=== PATIENT | female | born 1990 | race African-American/Black ===

== ENCOUNTER 2024-11-08 13:14 | Emergency (ER) | payer OTHER ==
[~2024-11-08] VITALS: Ht 162.6 cm; Wt 90.7 kg
[2024-11-08 14:51] VITALS: BP 135/83; PULSE 91; RESP 20; TEMP 97.8; O2SAT 100
[2024-11-08 15:53] LABS: Urine Bacteria None Seen /hpf (None Seen)
[2024-11-08] MEDS: HYDROcodone-ACET 5/325MG TAB PO ONE (15:53)
[2024-11-08 16:03] LABS: Urine Blood Negative /uL (Negative); Urine Budding Yeast OCCASIONAL /hpf (None Seen); Urine Clarity Clear (Clear); Urine Color Light-Yellow (Yellow); Urine Protein, UAD Negative (Negative); Urine Specific Gravity 1.015 (1.001-1.035); Urine Squamous Epithelial Cell FEW /hpf (<5); Urine Urobilinogen Normal (Negative); Urine WBC 1 /HPF (0-5); Urine pH 6.5 (5.0-9.0)
--- NOTE | 2024-11-08 16:37 | DVH ---
EXAM: US PELVIC Clinical History: r/o abscess Comparison: None Technique: Grayscale ultrasound of the vulvar soft tissues performed with color Doppler and spectral /pulsed waveform as indicated. Findings/Impression: 1.2 X 0.7 cm anechoic, nonvascular structure near the labia/vaginal canal. Findings may reflect a S kene's gland or bartholin gland cyst. No evidence of an abscess.
[2024-11-08 16:51] LABS: Basophils # (auto) 0 10 ^3/uL (0-0.2); Basophils % (auto) 0.6 % (0.0-2.0); Eosinophils # (auto) 0.3 10 ^3/uL (0-0.8); Eosinophils % (auto) 4.6 % (0.0-7.0); Lymphocytes # (auto) 1.7 10 ^3/uL (0.4-5.4); Mean Corpuscular Hemoglobin 29.8 pg (28.0-32.0); Mean Corpuscular Hgb Conc. 33.3 g/dL (32.0-36.0); Mean Corpuscular Volume 89.4 fL (80.0-100.0); Monocytes # (auto) 0.4 10 ^3/uL (0-1.3); Monocytes % (auto) 7.7 % (0.0-12.0); Neutrophils % (auto) 56.1 % (37.0-80.0); Nucleated Red Blood Cells % 0.2 %; Platelet Count (auto) 297 10^3/uL (140-450); Red Blood Cells 4.36 10^6/uL (4.0-5.20); Red Cell Distribution Width 12.5 % (11.8-14.3); White Blood Cell 5.4 10^3/uL (4.4-10.8)
[2024-11-08] MEDS ORDERED: HYDR-4902 PO (17:08)
--- NOTE | 2024-11-08 17:08 | ED.PDOC ---
MANAGER WASTEWATER HPI Comments 34 year old presents with cc of a painful abscess/cyst to pelvic area Recent I&D with OB 3 days ago Pt feels its regrowing Denies f/c/n/v/d Requesting another I&D. Does not want abx, refusing labs, refusing medications for pain Chief Complaint: Abscess Time Seen by MD: 14:11 Reviewed Notes: Nurses Notes, Medications, Allergies Allergies: Uncoded Allergies: BENOPHENOXIDE (Allergy, Unknown, 11/08/24) Home Meds Active Scripts Hydrocodone-Acetaminophen (Hydrocodone Bitartrate/AC 5-325 mg) 1 Tab Tab, 1 TAB PO Q8HP PRN for 2 Days, #6 TAB 0 Refills Prov:JULI OCHOA Nancy SPOT WELDER 11/08/24 Information Source: Patient All Other Systems: Reviewed and Negative (per hpi) Physical Exam General Appearance: No Apparent Distress, Normal HEENT: Normal ENT Inspection, Pharynx Normal, TMs Normal Neck: Full Range of Motion, Non-Tender, Normal, Normal Inspection Respiratory: Chest Non-Tender, Lungs Clear, No Accessory Muscle Use, No Respiratory Distress, Normal Breath Sounds Cardiovascular: No Murmur, No Gallop, Regular Rate/Rhythm Breast Exam: Deferred Gastrointestinal: No Organomegaly, Non Tender, No Pulsatile Mass, Normal Bowel Sounds, Soft Genitalia: Deferred Pelvic: Other (Francy in the room: no visible abscess or cyst noted. Normal on inspection) Rectal: Deferred Extremities: No calf tenderness, Normal capillary refill, Normal inspection, Normal range of motion, Non-tender, No pedal edema Musculoskeletal : Apperance: Normal Neurologic: Alert, No Motor Deficits, Normal Affect, Normal Mood, No Sensory Deficits Cerebellar Function: Normal Reflexes: Normal Skin: Dry, Normal Color, Warm Lymphatic: No Adenopathy Was a procedure done? Was a procedure done?: No Differential Diagnosis (QUALITY TECHNICIAN) Vaginal Bleeding: Other X-Ray, Labs, Meds, VS Vital Signs Date Time Temp Pulse Resp B/P (MAP) Pulse Ox O2 Delivery O2 Flow Rate FiO2 11/08/24 14:51 97.8 91 20 135/83 (100) 100 97.8 11/08/24 13:25 97.8 91 20 135/83 (100) 100 Lab Test 11/08/24 16:34 11/08/24 15:30 Range/Units White Blood Count 5.4 4.4-10.8 10^3/uL Red Blood Count 4.36 4.0-5.20 10^6/uL Hemoglobin 13.0 12.2-16.2 g/dL Hematocrit 39.0 36.0-46.0 % Mean Corpuscular Volume 89.4 80.0-100.0 fL Mean Corpuscular Hemoglobin 29.8 28.0-32.0 pg Mean Corpuscular Hemoglobin Concent 33.3 32.0-36.0 g/dL Red Cell Distribution Width 12.5 11.8-14.3 % Platelet Count 297 140-450 10^3/uL Mean Platelet Volume 7.6 6.9-10.8 fL Neutrophils (%) (Auto) 56.1 37.0-80.0 % Lymphocytes (%) (Auto) 31.0 10.0-50.0 % Monocytes (%) (Auto) 7.7 0.0-12.0 % Eosinophils (%) (Auto) 4.6 0.0-7.0 % Basophils (%) (Auto) 0.6 0.0-2.0 % Neutrophils # (Auto) 3.0 1.6-8.6 10 ^3/uL Lymphocytes # (Auto) 1.7 0.4-5.4 10 ^3/uL Monocytes # (Auto) 0.4 0-1.3 10 ^3/uL Eosinophils # (Auto) 0.3 0-0.8 10 ^3/uL Basophils # (Auto) 0 0-0.2 10 ^3/uL Nucleated Red Blood Cells 0.2 % Sodium Level 140 136-145 mmol/L Potassium Level 3.5 3.5-5.1 mmol/L Chloride Level 108 H 98-107 mmol/L Carbon Dioxide Level 28 20-31 mmol/L Anion Gap 4 L 5-15 Blood Urea Nitrogen 9 9-23 mg/dL Creatinine 0.89 0.550-1.02 mg/dL Glomerular Filtration Rate Calc 88 >90 mL/min BUN/Creatinine Ratio 10.1 10.0-20.0 Serum Glucose 112 H 74-106 mg/dL Calcium Level 9.1 8.7-10.4 mg/dL Total Bilirubin 0.3 0.2-1.0 mg/dL Aspartate Amino Transferase (AST) 12 L 13-40 U/L Alanine Aminotransferase (ALT) 12 7-40 U/L Alkaline Phosphatase 69 46-116 U/L Total Protein 6.9 5.7-8.2 g/dL Albumin 4.1 3.2-4.8 g/dL Urine Color Light-yellow Yellow Urine Clarity Clear Clear Urine pH 6.5 5.0-9.0 Urine Specific Warren 1.015 1.001-1.035 Urine Protein Negative Negative Urine Ketones Negative Negative Urine Blood Negative Negative /uL Urine Nitrite Negative Negative Urine Bilirubin Negative Negative Urine Urobilinogen Normal Negative mg/dL Urine Leukocyte Esterase 1+ Negative /uL Urine RBC <1 0 - 4 /hpf Urine Microscopic WBC 1 0-5 /HPF Urine Squamous Epithelial Cells Few <5 /hpf Urine Bacteria None seen None Seen /hpf Urine Yeast (Budding) Occasional None Seen /hpf Urine Glucose Normal Normal mg/dL Urine Test Negative Negative PATIENT: JANNET ZAMORAAACCT: [id number]: [id number] : 1990 LOC: ER ROOM / BED: / AGE / SEX: 34 / F ADM STATUS: REG ER SERVICE [id number] ORDERING PHYSICIAN: JULI OCHOA NP PROCEDURE(s): PELUS - PELVIC REASON: r/o abscess ORDER NUMBER(s): [id number], ACCESSION NUMBER(s): [id number] EXAM: US PELVIC Clinical History: r/o abscess Comparison: None Technique: Grayscale ultrasound of the vulvar soft tissues performed with color Doppler and spectral/pulsed waveform as indicated. Findings/Impression: 1.2 X 0.7 cm anechoic, nonvascular structure near the labia/vaginal canal. Findings may reflect a Polvadera's gland or bartholin gland cyst. No evidence of an abscess. ATED BY: TAMIKO ENGLAND DO DICTATED DATE/TIME: 11/08/241633 SIGNED BY: TAMIKO ENGLAND DO SIGNED DATE/TIME: 11/08/241633 CC: X-Ray, Labs, Meds, VS Comment 1.2 X 0.7 cm anechoic, nonvascular structure near the labia/vaginal canal. Findings may reflect a Polvadera's gland or bartholin gland cyst. No well defined abscess noted Will defer to OB. Has apt in 2 days. Return precautions discussed and pt agreed to plan Time of 1ST Reevaluation: 17:00 Reevaluation 1ST: Improved Patient Education/Counseling: Diagnosis, Treatment Family Education/Counseling: Diagnosis, Treatment Departure 1 Departure Time of Disposition: 17:07 Impression: Primary Impression: Bartholin cyst Disposition: HOME / SELF CARE / HOMELESS Condition: Stable e-Prescriptions Hydrocodone-Acetaminophen (Hydrocodone Bitartrate/AC 5-325 mg) 1 Tab Tab 1 TAB PO Q8HP PRN for 2 Days, #6 TAB 0 Refills Prov: JULI OCHOA SPOT WELDER 11/08/24 Critical Care Note Critical Care Time?: No Stability Stability form required: No Heart Score Heart Score: Heart Score Response (Comments) Value History N/A 0 EKG N/A 0 Age N/A 0 Risk Factors N/A 0 Troponin N/A 0 Total 0 JULI OCHOA NP Nov 08, 2024 17:08
[2024-11-08 17:23] LABS: Alanine Aminotransferase 12 U/L (7-40); Albumin 4.1 g/dL (3.2-4.8); Alkaline Phosphatase 69 U/L (46-116); Anion Gap 4 (5-15); Aspartate Aminotransferase 12 U/L (13-40); BUN/Creatinine Ratio 10.1 (10.0-20.0); Bilirubin, Total 0.3 mg/dL (0.2-1.0); Blood Urea Nitrogen 9 mg/dL (9-23); Calcium 9.1 mg/dL (8.7-10.4); Carbon Dioxide 28 mmol/L (20-31); Chloride 108 mmol/L (98-107); Glucose 112 mg/dL (74-106); Potassium 3.5 mmol/L (3.5-5.1); Sodium 140 mmol/L (136-145); Total Protein 6.9 g/dL (5.7-8.2)
== END 2024-11-08 17:12 | disposition home or self-care (01) ==
LOC: ER 13:14
DX: N75.0 Cyst of Bartholin's gland (principal); Z79.899 Other long term (current) drug therapy; Z32.02 Encounter for pregnancy test, result negative
CPT/HCPCS: 36415; 76856; 80053; 81001; 81025; 85025

== ENCOUNTER 2024-11-18 08:25 | Observation (INO) | payer OTHER ==
[~2024-11-18] VITALS: Ht 162.6 cm; Wt 89.9 kg
[~2024-11-18 08:25] MED LIST: HYDR-4902 PO
--- NOTE | 2024-11-18 08:43 | ED.PDOC ---
History of Present Illness HPI Comments 34 year old female presents to the ED with a chief complaint of pelvic pain. Patient states her OB is Dr. Estrella, was seen 11/15/24, was told to come to ED today (11/18/24). She has been experiencing vaginal cyst since June 2024. Patient refused any pelvic exam and states she wants Dr. Estrella called. Denies any PMHx as well as nausea, vomiting, diarrhea, fever, chills, abdominal pain. No other symptoms or modifying factors present at this time. Chief Complaint: Pelvic Pain Time Seen by MD: 08:30 Reviewed Notes: Medications, Allergies Allergies: Uncoded Allergies: BENOPHENOXIDE (Allergy, Unknown, 11/08/24) Home Meds Active Scripts Hydrocodone-Acetaminophen (Hydrocodone Bitartrate/AC 5-325 mg) 1 Tab Tab, 1 TAB PO Q8HP PRN for 2 Days, #6 TAB 0 Refills Prov:GABRIELAJULI METAL FABRICATOR 11/08/24 Information Source: Patient Mode of Arrival: Ambulatory Severity: Moderate Timing: Hours Duration: Since onset Prehospital treatment: None Past Medical History PAST MEDICAL HISTORY: Denies Surgical History: Denies all surgeries WEATHERIZATION CREW LEADER History: No Pertinent WEATHERIZATION CREW LEADER History Family History Family History: Reviewed,noncontributory to illness, No family hx of Cancer, No family hx of DM, No family hx of Heart zeinab, No family hx of HTN, No family hx ofKidney zeinab, No family hx of Liver zeinab, No family hx of Lung zeinab, No family hx of Stroke Social History Smoker: Non-Smoker Alcohol: Denies ETOH Use Drugs: Denies Drug Use Lives In: Home Constitutional: denies: chills, diaphoresis, fatigue, fever, malaise, sweats, weakness, others EENTM: denies: blurred vision, double vision, ear bleeding, ear discharge, ear drainage, ear pain, ear ringing, eye pain, eye redness, hearing loss, mouth pain, mouth swelling, nasal discharge, nose bleeding, nose congestion, nose pain, photophobia, tearing, throat pain, throat swelling, voice changes, others Respiratory: denies: cough, hemoptysis, orthopnea, SOB at rest, shortness of breath, SOB with excertion, stridor, wheezing, others Cardiovascular: denies: chest pain, dizzy spells, diaphoresis, Dyspnea on exertion, edema, irregular heart beat, left arm pain, lightheadedness, palpitations, PND, syncope, others Gastrointestinal: denies: abdomen distended, abdominal pain, blood streaked bowels, constipated, diarrhea, dysphagia, difficulty swallowing, hematemesis, melena, nausea, poor appetite, poor fluid intake, rectal bleeding, rectal pain, vomiting, others Genitourinary: reports: pain (pelvic ); denies: abnormal vagina bleeding, burning, dyspareunia, dysuria, flank pain, frequency, hematuria, incontinence, , vagina discharge, urgency, others Neurological: denies: dizziness, fainting, headache, left sided numbness, left sided weakness, numbness, paresthesia, pre-existing deficit, right sided n umbness, right sided weakness, seizure, speech problems, tingling, tremors, weakness, others Musculoskeletal: denies: back pain, gout, joint pain, joint swelling, muscle pain, muscle stiffness, neck pain, others Integumetry: denies: bruises, change in color, change in hair/nails, dryness, laceration, lesions, lumps, rash, wounds, others Allergic/Immunocompromised: denies: Difficulty Healing, Frequent Infections, Hives, Itching, others Hematologic/Lymphatic: denies: anemia, blood clots, easy bleeding, easy bruising, swollen glands, others Endocrine: denies: excessive hunger, excessive sweating, excessive thirst, excessive urination, flushing, intolerance to cold, intolerance to heat, unexplained weight gain, unexplained weight loss, others Psychiatric: denies: anxiety, bipolar disorder, depression, hopeless, panic disorder, schizophrenia, sleepless, suicidal, others All Other Systems: Reviewed and Negative Physical Exam Exam Comments pt declined exam. she states that she was told by Dr Bagley to come to the ER and have him called General Appearance: No Apparent Distress, Normal HEENT: Normal ENT Inspection, Pharynx Normal, TMs Normal Neck: Full Range of Motion, Non-Tender, Normal, Normal Inspection Respiratory: Chest Non-Tender, Lungs Clear, No Accessory Muscle Use, No Respiratory Distress, Normal Breath Sounds Cardiovascular: No Edema, No JVD, No Murmur, No Gallop, Normal Peripheral Pulses, Regular Rate/Rhythm Breast Exam: Deferred Gastrointestinal: No Organomegaly, Non Tender, No Pulsatile Mass, Normal Bowel Sounds, Soft Genitalia: Deferred Pelvic: Other (patient declined requesting to call dr. estrella) Rectal: Deferred Extremities: No calf tenderness, Normal capillary refill, Normal inspection, Normal range of motion, Non-tender, No pedal edema Musculoskeletal : Apperance: Normal Neurologic: Alert, machinist 2nd shift II-XII nml as Tested, No Motor Deficits, Normal Affect, Normal Mood, No Sensory Deficits Cerebellar Function: Normal Reflexes: Normal Skin: Dry, Normal Color, Warm Lymphatic: No Adenopathy Was a procedure done? Was a procedure done?: No Differential Dx Considerations may include: abscess, cyst, torsion, pid, uti, bartholin's cyst, related conditions X-Ray, Labs, Meds, VS Vital Signs Date Time Temp Pulse Resp B/P (MAP) Pulse Ox O2 Delivery O2 Flow Rate FiO2 11/18/24 08:39 97.9 79 16 138/92 (107) 100 97.9 Time of 1ST Reevaluation: 09:00 Reevaluation 1ST: Unchanged Patient Education/Counseling: Diagnosis, Treatment, Prognosis, Need For Follow Up Family Education/Counseling: No Family Present Additional Information Dr Acuna was called, as pt requested, and Dr Estrella admitted the pt Departure 1 Departure Time of Disposition: 09:37 Impression: Primary Impression: Pelvic pain Disposition: ADMITTED INPATIENT Admit to: Med Surg Condition: Stable Critical Care Note Critical Care Time?: No Stability Stability form required: No I personally scribed for AMIRAH PADRON MD ([email or web address]) on 11/18/24 at 08:43. Electronically submitted by Sarina Ying ([email or web address]). I personally scribed for AMIRAH PADRON MD ([email or web address]) on 11/18/24 at 08:54. Electronically submitted by Sarina Ying ([email or web address]). AMIRAH PADRON MD Nov 18, 2024 08:43
--- NOTE | 2024-11-18 09:20 | DVHHP2 ---
TYPE MAPPER CC & HPI Date Date of Admission: Nov 18, 2024 Chief Complaints: Reason for admission: Vulvar pain recurrent cyst vs abscess History of Present Complaints History of Present Complaints 34y admitted with acute on chronic vulvar pain Patient has had multiple rounds of antibiotics and s/p I&D several times for a vulvar cyst/abscess The cyst is growing now recurrent and very painful with walking and activities Denies fever/chills. No history of STI's Past Medical History Cardiac: No pertinent Hx Pulmonary: No pertinent Hx Central Nervous System: No pertinent Hx GI: No pertinent Hx Hemotology/Oncology: No pertinent Hx Hepatobiliary: No pertinent Hx Psychiatric: No pertinent Hx Musculoskeletal: No pertinent Hx Rheumotologic: No pertinent Hx Infectious Disease: No peritnent Hx ENT: No pertinent Hx Renal/: No pertinent Hx Endocrine: No pertinent Hx Dermatology: No pertinent Hx Others TYPE MAPPER History TYPE MAPPER History TYPE MAPPER History: s/p BTL Breast augmentation Abdominoplasty Normal PAP Allergies: Uncoded Allergies: BENOPHENOXIDE (Allergy, Unknown, 11/08/24) Home Meds Active Scripts Hydrocodone-Acetaminophen (Hydrocodone Bitartrate/AC 5-325 mg) 1 Tab Tab, 1 TAB PO Q8HP PRN for 2 Days, #6 TAB 0 Refills Prov:JULI OCHOA FRAME ALIGNER 11/08/24 Family History Non contributory Social History Denies Drug, Tobacco use, social EtOH once per month Review of Systems Constitutional: No symptom reported Ears, Nose, & Throat: No symptom reported Eyes: No symptom reported Pulmonary/Respiratory: No symptom reported Cardiovascular: No symptom reported Gastrointestinal: No symptom reported Genitourinary: Pain (vulva with cyst) Musculoskeletal: No symptom reported Skin: No symptom reported Psychiatric: No symptom reported Endocrine: No symptom reported Hemotologic/Lymphatic: No symptom reported Physical Exam Physical Exam Vitals: Vital Signs Date Time Temp Pulse Resp B/P (MAP) Pulse Ox O2 Delivery O2 Flow Rate FiO2 11/18/24 08:39 97.9 79 16 138/92 (107) 100 97.9 HEENT: NCAT Heart: Rhythm Normal Lungs: Clear Abdomen: Non tender Extremities: Normal Reflexes: Normal Assistant Director Of Admissions/Pelvic Exam: Lesions (1 to 2 cm indurated cyst/mass at introitus and left external vulvar skin) Assessment and Plan Plan Assessment and Plan: Recurrent vulvar cyst vs abscess Plan: Will admit for outpatient surgery. Consented for PEUA, I&D vulvar cyst/abscess, possible marsupialization of cyst. Informed consent obtained Risks of pain, scar, bleeding, infection, wound separation/dehiscence, recurrent cyst formation, cosmetic asymmetry or deformity of vagina/vulva discussed, dyspareunia Alternative treatments such as observation, antibiotics, warm compresses declined, insisting on surgical intervention due to chronicity of problem with frequent recurrences. Visit Coding OBGYN Date of Service: Nov 18, 2024 Billing Provider: REBECA OLSEN DO SHEET MUSIC SALESPERSON Common Visit Codes: 48542-[id number] OBS CARE (HIGH) REBECA OLSEN DO Nov 18, 2024 09:20
[2024-11-18 09:34] LABS: Basophils # (auto) 0 10 ^3/uL (0-0.2); Basophils % (auto) 0.6 % (0.0-2.0); Eosinophils # (auto) 0.2 10 ^3/uL (0-0.8); Hematocrit 39.7 % (36.0-46.0); Hemoglobin 13.5 g/dL (12.2-16.2); Lymphocytes # (auto) 1.2 10 ^3/uL (0.4-5.4); Mean Corpuscular Hemoglobin 30.3 pg (28.0-32.0); Mean Corpuscular Volume 89.1 fL (80.0-100.0); Monocytes # (auto) 0.4 10 ^3/uL (0-1.3); Monocytes % (auto) 8.5 % (0.0-12.0); Neutrophils # (auto) 2.7 10 ^3/uL (1.6-8.6); Neutrophils % (auto) 59.9 % (37.0-80.0); Nucleated Red Blood Cells % 0.1 %; Platelet Count (auto) 308 10^3/uL (140-450); Red Blood Cells 4.46 10^6/uL (4.0-5.20); Red Cell Distribution Width 12.5 % (11.8-14.3); White Blood Cell 4.5 10^3/uL (4.4-10.8)
[2024-11-18 09:51] LABS: Alanine Aminotransferase 18 U/L (7-40); Albumin 4.4 g/dL (3.2-4.8); Alkaline Phosphatase 74 U/L (46-116); Anion Gap 4 (5-15); BUN/Creatinine Ratio 9.4 (10.0-20.0); Bilirubin, Total 0.4 mg/dL (0.2-1.0); Calcium 9.3 mg/dL (8.7-10.4); Carbon Dioxide 29 mmol/L (20-31); Chloride 106 mmol/L (98-107); Potassium 4.1 mmol/L (3.5-5.1); Sodium 139 mmol/L (136-145); Total Protein 7.4 g/dL (5.7-8.2)
[2024-11-18 09:56] VITALS: BP 114/72; PULSE 87; RESP 18; TEMP 98.4; O2SAT 94
[2024-11-18 09:56] LABS: Aspartate Aminotransferase 11 U/L (13-40); Blood Urea Nitrogen 8 mg/dL (9-23); Glucose 107 mg/dL (74-106)
[2024-11-18 10:47] LABS: Amphetamine Screen, Urine Neg (NEGATIVE)
[2024-11-18 10:48] LABS: Opiate Scree,Urine Neg (NEGATIVE)
[2024-11-18 10:51] LABS: Urine Bacteria FEW /hpf (None Seen); Urine Blood Negative /uL (Negative); Urine Clarity Clear (Clear); Urine Color Colorless (Yellow); Urine Protein, UAD Negative (Negative); Urine Specific Gravity 1.012 (1.001-1.035); Urine Squamous Epithelial Cell FEW /hpf (<5); Urine Urobilinogen Normal (Negative); Urine WBC 6 /HPF (0-5); Urine pH 7.5 (5.0-9.0)
[2024-11-18 10:58] LABS: Barbiturate Scree,Urine Neg (NEGATIVE); Benzodiazephine Screen, Urine Neg (NEGATIVE); Cannabinoid Screen, Urine Neg (NEGATIVE); Cocaine Screen, Urine Neg (NEGATIVE); Phencyclidine Screen, Urine Neg (NEGATIVE)
[2024-11-18 13:00] VITALS: BP 125/60; PULSE 85; RESP 18; TEMP 97.6; O2SAT 98
[2024-11-18] MEDS: ceFAZolin 2 GM/D5W50ml 50 ML IV ONE (15:11)
[2024-11-18] MEDS: LACTATED RINGER'S 1,000 ML IV SCH (15:11)
[2024-11-18] MEDS ORDERED: PROPOFOL 10 MG/ML 20 ML IV ONE (17:15)
[2024-11-18] MEDS ORDERED: fentaNYL CITRATE 100 MCG/2 ML VL ONE (17:15)
[2024-11-18] MEDS ORDERED: LIDOCAINE HCL 100 MG/5ML (2%) SYRG INJ IV ONE (17:15)
[2024-11-18] MEDS ORDERED: BACITRACIN TOP OINT 1 UD PKG TOP ONE (17:30)
[2024-11-18] MEDS: Lidocaine/Epinephrine 1%-1:100,000 30ML VL ONE (17:58)
[2024-11-18 18:32] VITALS: TEMP 98.2
--- NOTE | 2024-11-18 18:35 | DVHPN2 ---
Visit Coding OBGYN Date of Service: Nov 18, 2024 Billing Provider: REBECA OLSEN DO CINDER WORKER Common Visit Codes: PROCEDURE ONLY (Excision of Vulvar lesion/cyst) REBECA OLSEN DO Nov 18, 2024 18:35
[2024-11-18] MEDS ORDERED: ACE3T PO (18:38)
[2024-11-18] MEDS ORDERED: LEVO750T40 PO (18:40)
[2024-11-18] MEDS ORDERED: IBUP-1454 PO (18:41)
--- NOTE | 2024-11-18 18:42 | DVHDS2 ---
Physician Discharge Progress N Final Diagnosis: Vulvar cyst Secondary Diagnosis: pelvic pain Operations or Procedures: Operations or Procedures excision of vulvar cyst/lesion Condition on Discharge: Stable Disposition: Home Discharge Instructions: Diet: Regular Activity: Light activity Activity comment: Pelvic rest x 4 weeks May shower in 24 hr, Follow Up/Referral: 1 week [facility] Medications: Tylenol w/ codeine, ibuprofen 600mg, Levaquin 750mg daily x 5d Follow Up Care: Discharge Statement: "Patient was advised to return to the ER or call 911 if any headaches, dizziness, shortness of breath, chest pain, abdominal pain, bleeding, fevers, or worsening of medical condition. Patient was counseled about treatment plan, medications, possible side effects, patientverbalized understanding. All questions were answered to the best of my ability. This discharge took greater then 30 minutes in planning, reviewing documentation, counseling the patient, and discussing with other team members." Visit Coding OBGYN Date of Service: Nov 18, 2024 Billing Provider: REBECA OLSEN DO CORRESPONDENCE SCHOOL INSTRUCTOR Common Visit Codes: 25710-NFC/OBS DISCH DAY <30MIN REBECA OLSEN DO Nov 18, 2024 18:42
[2024-11-18] MEDS ORDERED: METOCLOPRAMIDE HCL 5MG/ml INJ 2ml VIAL IV ONE (18:45)
[2024-11-18] MEDS ORDERED: ONDANSETRON HCL 4 MG/2 ML VIAL IV ONE (18:45)
[2024-11-18] MEDS ORDERED: fentaNYL CITRATE 100 MCG/2 ML VL IV PRN (18:45)
--- NOTE | 2024-11-18 18:50 | DVHOP ---
DATE OF SURGERY: 11/18/2024 PREOPERATIVE DIAGNOSIS: Chronic vulvar cyst and abscess. FINAL DIAGNOSIS: Vulvovaginal Lesion (cyst versus chronic inflammatory lesion). SURGEON: Quique Martinez DO CIRCULATION TENDER: information technology administratorarnie Avery PROCEDURES PERFORMED: * Pelvic exam under anesthesia. * Excision of vulvovaginal cyst. TYPE OF ANESTHESIA: General. INDICATIONS FOR PROCEDURE: The patient is a 34-year-old -[place]ov[place] female who has presented with recurrent vulvar cyst unresponsive to antibiotics and conservative management. The patient declined alternative methods of treatment and insisted on excision of lesion. Risks/benefits/alternatives reviewed and informed consent obtained. Patient accepts risks of pain, scar, bleeding, infection, fistula formation, wound breakdown and dehiscence, cosmetic deformity, dyspareunia. All questions answered prior to proceeding with planned procedure. FINDINGS: The patient has a 1.5 cm solid, inflammatory mass between the posterior vaginal fourchette at the introitus and the perineum. There was no purulent discharge. The inflammatory mass appears chronic and indurated. Other findings, the patient has a small rectal fissure, otherwise rectal exam was normal. No communication that could directly be seen with the mass. TECHNICAL PROCEDURE: After informed consent was obtained, the patient was taken to the operating room where she underwent smooth induction with general anesthesia. The patient was placed in dorsal lithotomy position in Neri stirrups. The vagina and perineum were thoroughly prepped and the patient sterilely draped in the usual fashion. A pelvic exam was then performed under anesthesia. There was a 1.5 cm mass sitting in between the posterior vaginal fourchette and the perineum. A digital rectal exam did not demonstrate any mass lesions, yet a small anal fissure is noted.. The lesion was injected with 1% lidocaine with epinephrine in the vaginal mucosa and on the vulvar skin surfaces, both deep and superficial. A vertical incision was made with the scalpel in the vagina. The vaginal epithelium was undermined and dissected off the inflammatory mass. The lesion was identified and dissected sharply off of the perineal structures. The mass was sharply dissected and completely excised. Bleeding points were controlled with cautery. Next, the deep perineal tissue was closed using 2-0 Vicryl in an interrupted fashion. Good tissue approximation and hemostasis was obtained. The vaginal mucosa was closed using 2-0 Vicryl in continuous running locking fashion to the hymenal ring. The vulvar skin was closed with a 2-0 Vicryl in an interrupted fashion x3 sutures. During the surgery and at the conclusion of the surgery, rectal exam was always performed. There was no injury into the rectum or rectal sphincter. There was a small rectal fissure that was noted as described above. At the conclusion of the surgery, the patient was taken out of lithotomy position, awakened, and taken to recovery room in stable condition. INTRAOPERATIVE COMPLICATIONS: None. ESTIMATED BLOOD LOSS: Less than 15 mL. SPECIMENS: Vulvar lesion. MEDICATIONS: The patient received 2 grams of Ancef prior to skin incision. DO MARIANGEL Campos/EMIGDIO TID: [id number] RECEIPT: [id number] MTDD
[2024-11-18 19:00] VITALS: BP 115/70; PULSE 93; RESP 16; O2SAT 96
== END 2024-11-18 19:20 | disposition home or self-care (01) ==
LOC: ER 08:25 → OVERFLOW 09:08
PROVIDERS: ADMIT Obstetrics & Gynecology; ATTEND Obstetrics & Gynecology
DX: N90.7 Vulvar cyst (principal); K60.2 Anal fissure, unspecified; R10.2 Pelvic and perineal pain; Z98.890 Other specified postprocedural states; Z79.899 Other long term (current) drug therapy
CPT/HCPCS: 36415; 57135; 80053; 80307; 81001; 84702; 85025; 86850; 86900; 86901; 88305; 88312; 88342; 96365; 99284; G0378; J0690; J2704; J3010